=== PATIENT | female | born 1985 | race Caucasian/White ===

== ENCOUNTER 2016-07-15 12:00 | Emergency (ER) | payer OTHER ==
[2016-07-15] MEDS ORDERED: DIPHENHYDRAMINE 50 MG/ML VIAL ONE (12:42)
[2016-07-15] MEDS ORDERED: KETOROLAC TROMETHAMINE 30 MG/ML VIAL ONE (12:42)
[2016-07-15] MEDS ORDERED: METOCLOPRAMIDE HCL 10 MG/2 ML VIAL ONE (12:42)
--- NOTE | 2016-07-15 14:32 | ER NURSING DOCUMENTATION ---
Nurse's Notes [facility] Name:Tracy Cuevas Age:30 yrs Sex:Female :1985 Arrival Date:07/15/2016 Time:12:00 Bed1 Private MD: Diagnosis:Acute Headache Presentation: 07/15 12:16 Presenting complaint: Patient states: Pt states she has had frontal head pain for ma several days Occasional emesis Oral mucosa moist. Presenting complaint: Patient states: States is able to retain Dara zay. Transition of care: Home. 12:16 Acuity: KELTON 3 nm 12:16 Method Of Arrival: Private Vehicle nm Triage Assessment: 12:20 Headache History: Denies prior headaches. General: Appears in no apparent distress, ma Behavior is cooperative. Pain: Complains of pain in forehead Pain At worst was 10 out of 10 on a pain scale. Pain began 2-3 days ago Also complains of nausea. Neuro: No deficits noted. Historical: - Allergies: No known drug Allergies; - Home Meds: 1. Ibuprofen Oral - PMHx: ASTHMA; - Tetanus: unknown. - Ebola Screening: : No symptoms or risks identified at this time. . - Immunization history: Flu Vaccine None. Assessment: 13:56 Reassessment: Patient states feeling better. cb Vital Signs: 12:21 BP 132 / 77; Pulse 73; Resp 18; Temp 98.0; Pulse Ox 96% on R/A; Weight 68.04 kg; Height nm 5 ft. 6 in. (167.64 cm); Pain 10/10; 14:22 BP 103 / 63; Pulse 71; Pulse Ox 94% on R/A; cb 12:21 Body Mass Index 24.21 (68.04 kg, 167.64 cm) nm ED Course: 12:04 Patient arrived in ED. vikki 12:16 Yareli Ramirez, DAVIS is Primary Nurse. ma 12:18 Triage completed. ma 12:33 Patel Sykes MD is Attending Physician. jm 13:15 Inserted saline lock: 22 gauge in left hand. lpr Administered Medications: 13:00 Drug: NS 0.9% 1000 ml; Route: IV; Rate: bolus; Site: left hand; cb 13:25 Drug: Reglan 5 mg; {Note: administered by Opal Ramirez RN.} Route: IVP; Site: left hand; lpr 13:25 Drug: Benadryl 25 mg; {Note: administered by Opal Ramirez RN.} Route: IVP; Site: left lpr hand; 13:27 Drug: Toradol 30 mg; {Note: administered by Opal Ramirez RN.} Route: IVP; Site: left hand;lpr Outcome: 14:20 Discharge ordered by . cece 14:30 Discharged to home ambulatory, with family. cb 14:30 Condition: good 14:30 Discharge instructions given to patient, Instructed on discharge instructions, follow up and referral plans. Demonstrated understanding of instructions. 14:30 IV D/Yung cb 14:32 Patient left the ED. cb 07/16 13:09 Discharge F/U Call: Unable to reach: left voicemail: lp Signatures: Elaine Ireland, RN Yareli Britt cb, RN Ruthie Fam ma, RN RN lp Meyer, John, MD MD jm Roberts, Leslie, RN RN lpr Lietz, Jeff jl
--- NOTE | 2016-07-15 14:32 | ER PHYSICIAN DOCUMENTATION ---
Physician Documentation [facility] Name:Tracy Cuevas Age:30 yrs Sex:Female :1985 Arrival Date:07/15/2016 Time:12:00 Bed1 Private MD: Patel Olguin Disposition: 07/15/16 14:20 Discharged to Home/Self Care. Impression: Acute Headache. - Condition is Good. - Discharge Instructions: HEADACHE, Unspecified. - Medical Reconciliation form form. - Follow up: Private Physician; When: As needed; Reason: Continuance of care. - Problem is new. - Symptoms have improved. HPI: 07/15 13:37 This 30 yrs old Female presents to ER via Private Vehicle with complaints of jm Headache. 13:37 The patient complains of pain to the forehead, left side of the back of head and right jm side of the back of head. The patient describes the headache as a pressure. Onset: The symptoms/episode began/occurred 3 day(s) ago. Associated signs and symptoms: Pertinent positives: vomiting, Pertinent negatives: fever, neck stiffness. Severity of symptoms: in the emergency department the pain a " 10" out of "10". Headache History: Denies prior headaches. the symptoms are aggravated by lights. The patient has not experienced similar symptoms in the past. Pt w frontal MURRAY that has been ongoing for about 3 days. Pt also w vomiting and dry heaves. . Historical: - Allergies: No known drug Allergies; - Home Meds: 1. Ibuprofen Oral - PMHx: ASTHMA; - Tetanus: unknown. - Ebola Screening: : No symptoms or risks identified at this time. . - Immunization history: Flu Vaccine None. ROS: 14:01 Constitutional: Negative for chills, fever. 14:01 Eyes: Positive for photophobia, Negative for blurry vision, visual disturbance. 14:01 Neck: Negative for tenderness. 14:01 Abdomen/GI: Positive for nausea, vomiting, Negative for abdominal pain. 14:01 Neuro: Positive for headache, Negative for dizziness, numbness, tingling, weakness. 14:01 Psych: Negative for anxiety, depression, drug dependence, alcohol dependence. 14:01 All other systems are negative. Exam: 14:05 Constitutional: The patient appears alert, awake, comfortable. 14:05 Head/face: Exam is negative for obvious evidence of injury or deformity. 14:05 Eyes: Periorbital structures: appear normal, Pupils: equal, round, and reactive to light and accomodation, Extraocular movements: intact throughout. 14:05 ENT: Mouth: is normal, Voice: is normal. 14:05 Neck: ROM/movement: is normal, Lymph nodes: no appreciated lymphadenopathy. 14:05 Cardiovascular: Rate: normal, Rhythm: regular. 14:05 Abdomen/GI: Bowel sounds: normal, Palpation: abdomen is soft and non-tender. 14:05 Neuro: Mentation: is normal, Memory: is normal, Cranial nerves: CN II- XII are normal as tested, Cerebellar function: normal finger to nose testing, Motor: strength is 5/5 in all extremities, Sensation: is normal, Gait: is steady. 14:05 Psych: Behavior/mood is pleasant, cooperative, Affect is calm. Vital Signs: 12:21 BP 132 / 77; Pulse 73; Resp 18; Temp 98.0; Pulse Ox 96% on R/A; Weight 68.04 kg; Height ma 5 ft. 6 in. (167.64 cm); Pain 10/10; 14:22 BP 103 / 63; Pulse 71; Pulse Ox 94% on R/A; cb 12:21 Body Mass Index 24.21 (68.04 kg, 167.64 cm) ma MDM: 12:33 Patient medically screened. 14:06 Differential diagnosis: migraine, tension headache. Data reviewed: vital signs, nurses cece notes, lab test result(s), and as a result, I will discharge patient. Counseling: I had a detailed discussion with the patient and/or guardian regarding: the historical points, exam findings, and any diagnostic results supporting the discharge/admit diagnosis, the need for outpatient follow up, with the patient's primary care provider. Medication response: The patient's symptoms have improved. 15:00 Response to treatment: the patient's symptoms have resolved after treatment. ED course: cece Pt better after meds. Pt DC'd home w instructions to make appointment w PCP. . 07/15 12:33 Order name: Iv Saline Lock; Complete Time: 13:55 cece Dispensed Medications: 13:00 Drug: NS 0.9% 1000 ml; Route: IV; Rate: bolus; Site: left hand; cb 13:25 Drug: Reglan 5 mg; {Note: administered by Opal Ramirez RN.} Route: IVP; Site: left hand; lpr 13:25 Drug: Benadryl 25 mg; {Note: administered by Opal Ramirez RN.} Route: IVP; Site: left lpr hand; 13:27 Drug: Toradol 30 mg; {Note: administered by Opal Ramirez RN.} Route: IVP; Site: left hand;lpr Signatures: Elaine Ireland RN RN cb Abuso, Melanie, RN RN ma Meyer, John, MD MD jm Roberts, Leslie, RN RN lpr
== END 2016-07-15 14:32 | disposition home or self-care (01) ==
LOC: ER 12:00
DX: R51 Headache (principal); R11.2 Nausea with vomiting, unspecified; H53.143 Visual discomfort, bilateral
CPT/HCPCS: 96374; 96375; 99283; J1200; J1885; J2765